=== PATIENT | female | born 1980 | race Caucasian/White ===

== ENCOUNTER → 2024-01-23 17:51 | Outpatient (REF) | payer OTHER, SELFPAY | LOC: PAVMRI 17:51 | PROVIDERS: ATTENDING PHYSICIAN Physician Assistant Medical; FAMILY PHYSICIAN Family Medicine; REFERRING PHYSICIAN Neurological Surgery | DX: Z98.890 Other specified postprocedural states (principal) | CPT/HCPCS: 72148 ==

== ENCOUNTER → 2025-10-03 14:43 | Outpatient (REF) | payer OTHER, SELFPAY | LOC: HWRAD 14:43 | PROVIDERS: ATTENDING PHYSICIAN Student in an Organized Health Care Education/Training Program | DX: N92.0 Excessive and frequent menstruation with regular cycle (principal) | CPT/HCPCS: 76830; 76856 ==